=== PATIENT | female | born 1995 | race Caucasian/White ===

== ENCOUNTER 2019-08-31 09:25 | Emergency (ER) | payer BC, OTHER ==
[~2019-08-31] VITALS: Ht 162.6 cm; Wt 108.1 kg
[2019-08-31 09:31] VITALS: BP 129/70
--- NOTE | 2019-08-31 09:37 | NUR ---
PT AMBULATED TO ER BED 04
--- NOTE | 2019-08-31 09:40 | NUR ---
PT C/O VAGINAL SPOTTING FOR 2 DAYS AND ABDOMINAL CRAPMING SENSATION LOWER BACK PAIN X TODAY. DENIES DYSURIA, URGENCY, FREQUENCY, AND BURNING SENSATION OF URINATION. A0. LMP 06/18/19. REPORTS SHE IS FOR 4 WEEKS WHICH IS NOTIFIED BY HER OBGYN DR ACCORDING TO A URINE HCG TEST. PT DENIES ANY FEVER, CP, SOB, OR COUGH AT THIS TIME; PATIENT STATES PAIN OF 4/10 AT THIS TIME; VSS; PATIENT POSITIONED FOR COMFORT; HOB ELEVATED; BEDRAILS UP X1; BED DOWN. ER MD MADE AWARE OF PT STATUS.
--- NOTE | 2019-08-31 09:54 | NUR ---
ERMD AT BEDSIDE EVALUATING PT
[2019-08-31 09:58] LABS: BASOPHILS # (AUTO) 0.1 K/uL (0.00-0.22); BASOPHILS % (AUTO) 0.6 % (0.0-2.0); EOSINOPHILS # (AUTO) 0.1 K/uL (0-0.4); EOSINOPHILS % (AUTO) 0.8 % (0.0-4.0); HEMATOCRIT 38.3 % (36-48); HEMOGLOBIN 12.7 g/dL (12.0-16.0); LYMPHOCYTES % (AUTO) 20.9 % (20.5-51.1); MEAN CORPUSCULAR HEMOGLOBIN 30 pg (27-31); MEAN CORPUSCULAR HGB CONC 33 g/dL (33-37); MONOCYTES # (AUTO) 0.5 K/uL (0.8-1.0); MONOCYTES % (AUTO) 5.6 % (1.7-9.3); NEUTROPHILS % (AUTO) 72.1 % (42.2-75.2); PLATELET COUNT (AUTO) 329 K/uL (140-450); RED BLOOD CELL COUNT(AUTO) 4.25 MIL/uL (4.20-5.40); RED CELL DISTRIBUTION WIDTH 13.4 % (11.6-13.7); WHITE BLOOD COUNT (AUTO) 9.6 K/uL (4.8-10.8)
[2019-08-31 10:14] LABS: ANION GAP 13.5 (8-16); CARBON DIOXIDE 26.8 mmol/L (21-32); CREATININE 0.8 mg/dL (0.6-1.3); POTASSIUM 4.3 mmol/L (3.5-5.1)
--- NOTE | 2019-08-31 10:22 | NUR ---
US IS AT BEDSIDE.
[2019-08-31 11:14] VITALS: BP 120/65
--- NOTE | 2019-08-31 11:14 | NUR ---
dPatient discharged with v/s stable. Written and verbal after care instructions given and explained. Patient verbalized understanding. Ambulatory with steady gait. All questions addressed prior to discharge. Advised to follow up with ob-rn gyn provider.
[2019-08-31 11:21] LABS: APPEARANCE,URINE SL CLOUDY (CLEAR); BILIRUBIN,URINE NEGATIVE (NEGATIVE); BLOOD, URINE 3+ (NEGATIVE); COLOR,URINE AMBER (YELLOW); LEUKOCYTE ESTERASE ,URINE TRACE (NEGATIVE); NITRITE, URINE NEGATIVE (NEGATIVE); UGLUCOSE NEGATIVE (NEGATIVE)
[2019-08-31 11:40] LABS: RBC,URINE 11-20 (MOD) /HPF (0-5)
[2019-08-31 11:41] LABS: WBC,URINE 0-5 /HPF (0-5)
[2019-09-02 06:08] LABS: CHLAMYDIA TRACHOMATIS AMP DNA Negative (Negative)
== END 2019-08-31 11:14 | disposition home or self-care (01) ==
LOC: MED 09:25
DX: O20.9 Hemorrhage in early pregnancy, unspecified (principal); Z3A.01 Less than 8 weeks gestation of pregnancy
CPT/HCPCS: 36415; 76817; 80048; 81001; 81025; 84702; 85025; 86900; 86901; 87210; 87491; 99284; Q0092; 81002